=== PATIENT | male | born 1980 | race Caucasian/White ===

== ENCOUNTER 2019-12-22 17:17 | Emergency (ER) | payer OTHER ==
[2019-12-22 17:40] VITALS: BP 118/76; PULSE 67; RESP 18; TEMP 97.9
[2019-12-22 19:18] LABS: Cocaine Screen,Urine Not Detected (NotDetected); Phencyclidine Screen,Urine Not Detected (NotDetected); Urn Cannabinoid Scrn Not Detected (NotDetected)
[2019-12-22 19:19] LABS: Amphetamine Screen,Urine Not Detected (NotDetected); Barbiturate Screen,Urine Not Detected (NotDetected); Benzodiazepines Screen,Urine Not Detected (NotDetected); Methadone Screen, Urine Not Detected (NotDetected); Opiate Screen,Urine Not Detected (NotDetected); Oxycodone Screen, Urine Not Detected (NotDetected); Tricyclic Antidepressant,Urine Detected (NotDetected)
--- NOTE | 2019-12-22 21:52 | ED ---
General Adult HPI - General Source: patient, RN notes reviewed, old records reviewed Mode of arrival: ambulatory Limitations: no limitations <Hemanth Coon - Last Filed: 12/22/19 21:52> <Yessica Edward - Last Filed: 12/26/19 02:06> - General Chief complaint: Psychiatric Symptoms Stated complaint: EPS eval Time Seen by Provider: 12/22/19 17:49 - History of Present Illness Initial comments: 39-year-old male patient presents ED for evaluation of suicidal ideations. Patient reports that he has been feeling very depressed recently because recently had a child . Force he has a previous psychiatric issues in the past. Reports that he has been having ideations of harming himself by taking overdose of pain medication. Denies any action to harm to himself or any ideations or any other people. Denies any physical complaints at this time. Systemic: Pt denies fatigue, fever/chills, rash. Pt denies weakness, night sweats, weight loss. Neuro: Pt denies headache, visual disturbances, syncope or pre-syncope. HEENT: Pt denies ocular discharge or irritation, otalgia, rhinorrhea, pharyngitis or notable lymphadenopathy. Cardiopulmonary: Pt denies chest pain, SOB, heart palpitations, dyspnea on exertion. Abdominal/GI: Pt denies abdominal pain, n/v/d. : Pt denies dysuria, burning w/ urination, frequency/urgency. Denies new onset urinary or bowel incontinence. MSK: Pt denies myalgia, loss of strength or function in extremities. Neuro: Pt denies new onset weakness, paresthesias. (Hemanth Coon) - Related Data Home Medications Medication Instructions Recorded Confirmed DULoxetine HCL [Cymbalta] 60 mg PO DAILY 12/22/19 12/22/19 HYDROcodone/APAP 5-325MG [[place] 1 tab PO QID PRN 12/22/19 12/22/19 5-325] QUEtiapine [SEROquel] 800 mg PO HS 12/22/19 12/22/19 traZODone HCL [Desyrel] 200 mg PO HS 12/22/19 12/22/19 Allergies Allergy/AdvReac Type Severity Reaction Status Date / Time adhesive tape Allergy Rash/Hives Verified 12/22/19 20:36 iodine Allergy Rash/Hives Verified 12/22/19 20:36 mushroom Allergy Anaphylaxis Verified 12/22/19 20:36 shellfish derived [Shellfish] Allergy Anaphylaxis Verified 12/22/19 20:36 Review of Systems ROS Other: All systems not noted in ROS Statement are negative. <Hemanth Coon - Last Filed: 12/22/19 21:52> ROS Other: All systems not noted in ROS Statement are negative. <Yessica Edward - Last Filed: 12/26/19 02:06> ROS Statement: Those systems with pertinent positive or pertinent negative responses have been documented in the HPI. Past Medical History Additional Past Medical History / Comment(s): chronic neck and back pain History of Any Multi-Drug Resistant Organisms: None Reported Past Surgical History: No Surgical Hx Reported Past Psychological History: Anxiety, Bipolar, Depression Smoking Status: Current every day smoker Past Alcohol Use History: Abuse Past Drug Use History: None Reported <Hemanth Coon - Last Filed: 12/22/19 21:52> General Exam Limitations: no limitations <Hemanth Coon - Last Filed: 12/22/19 21:52> - General Exam Comments Initial Comments: Constitutional: NAD, AOX3, Pt has flat affect. HEENT: NC/AT, trachea midline. External ears appear normal, without discharge. Mucous membranes moist. EOM intact. There is no scleral icterus. No pallor noted. Cardiopulmonary: RRR, no murmurs, rubs or gallops, no JVD noted. Lungs CTAB in anterior and posterior [place]. No peripheral edema. Abdominal exam: Abdomen soft and non-distended. Abdomen non-tender to palpation in all 4 quadrants. Neuro: CN II-XII grossly intact. No nuchal rigidity. No raccon eyes, no simmons sign MSK: Full active ROM in upper and lower extremities, 5/5 stregnth. (Hemanth Coon) Course Vital Signs 12/22/19 17:36 Temperature 97.9 F Pulse Rate 67 Respiratory 18 Rate Blood Pressure 118/76 O2 Sat by Pulse 98 Oximetry Medical Decision Making <Hemanth Coon - Last Filed: 12/22/19 21:52> <Yessica Edward - Last Filed: 12/26/19 02:06> - Medical Decision Making 39-year-old male patient presents to ED for evaluation of suicidal ideations and depression. Patient vital signs are stable, afebrile. Physical exam did not display acute pathology. Patient is signed out to Dr. Edward at [phone] (Hemanth Coon) EPS evaluated the patient. Safety plan created. Patient will be discharged home and given resources for followup (Yessica Edward) - Lab Data Lab Results 12/22/19 Range/Units 18:00 Urine Opiates Screen Not Detected (NotDetected) Ur Oxycodone Screen Not Detected (NotDetected) Urine Methadone Screen Not Detected (NotDetected) Ur Propoxyphene Screen Not Detected (NotDetected) Ur Barbiturates Screen Not Detected (NotDetected) U Tricyclic Antidepress Detected H (NotDetected) Ur Phencyclidine Scrn Not Detected (NotDetected) Ur Amphetamines Screen Not Detected (NotDetected) U Methamphetamines Scrn Not Detected (NotDetected) U Benzodiazepines Scrn Not Detected (NotDetected) Urine Cocaine Screen Not Detected (NotDetected) U Marijuana (THC) Screen Not Detected (NotDetected) Disposition <Hemanth Coon - Last Filed: 12/22/19 21:52> Is patient prescribed a controlled substance at d/c from ED?: No Time of Disposition: 22:33 <Yessica Edward - Last Filed: 12/26/19 02:06> Clinical Impression: Depression Disposition: HOME SELF-CARE Condition: Stable Referrals: None,Stated [Primary Care Provider] - 1-2 days
== END 2019-12-22 22:55 | disposition home or self-care (01) ==
LOC: EC 17:17
DX: F32.9 Major depressive disorder, single episode, unspecified (principal); R45.851 Suicidal ideations; F41.9 Anxiety disorder, unspecified; F17.200 Nicotine dependence, unspecified, uncomplicated; F10.10 Alcohol abuse, uncomplicated; Z79.899 Other long term (current) drug therapy; Z91.048 Other nonmedicinal substance allergy status; Z91.018 Allergy to other foods; Z91.013 Allergy to seafood
CPT/HCPCS: 80306; 82075; 99285